=== PATIENT | female | born 1980 ===

== ENCOUNTER 2020-11-14 13:46 | Outpatient (CLI) | payer OTHER | END 2020-11-14 18:00 | disposition home or self-care (01) | LOC: LAB 13:46 | PROVIDERS: ATTEND Obstetrics & Gynecology Maternal & Fetal Medicine | DX: O28.1 Abnormal biochemical finding on antenatal screening of mother (principal) ==

== ENCOUNTER → 2020-11-14 | Outpatient (CLI) | payer OTHER | END | disposition home or self-care (01) | LOC: PRENATAL 11:00 | PROVIDERS: ATTEND Obstetrics & Gynecology Maternal & Fetal Medicine | DX: O35.0XX1 Maternal care for (suspected) central nervous system malformation in fetus, fetus 1 (principal); O35.3XX1 Maternal care for (suspected) damage to fetus from viral disease in mother, fetus 1; O28.1 Abnormal biochemical finding on antenatal screening of mother; O09.522 Supervision of elderly multigravida, second trimester; O98.512 Other viral diseases complicating pregnancy, second trimester; O99.212 Obesity complicating pregnancy, second trimester; Z36.89 Encounter for other specified antenatal screening; Z3A.20 20 weeks gestation of pregnancy ==

== ENCOUNTER → 2021-01-12 | Outpatient (CLI) | payer OTHER | END | disposition home or self-care (01) | LOC: PRENATAL 12-15 13:00 | PROVIDERS: ATTEND Obstetrics & Gynecology Maternal & Fetal Medicine | DX: O26.843 Uterine size-date discrepancy, third trimester (principal); Z36.89 Encounter for other specified antenatal screening ==

== ENCOUNTER 2021-02-13 04:04 | Inpatient (IN) | payer OTHER ==
[~2021-02-13] VITALS: Ht 170.2 cm; Wt 108.9 kg
[2021-02-13] MEDS ORDERED: BENADRYL25 MG PO (04:39)
[2021-02-13] MEDS ORDERED: PRENA1 TRUE CO1 EACH PO (04:39)
== END 2021-02-14 13:07 | disposition home or self-care (01) | DRG 204 ==
LOC: ER 04:04 → SEC-K 09:07 → OB/GYN 17:51
PROVIDERS: ADMIT Obstetrics & Gynecology; ATTEND Obstetrics & Gynecology
PROC: BY4FZZZ Ultrasonography of Third Trimester, Single Fetus (ICD-10-PCS; principal; 2021-02-13)
DX: R06.02 Shortness of breath (principal); R10.13 Epigastric pain; Z3A.34 34 weeks gestation of pregnancy; Z20.822 Contact with and (suspected) exposure to COVID-19

== ENCOUNTER 2021-03-05 05:30 | Inpatient (IN) | payer OTHER ==
[~2021-03-05] VITALS: Ht 170.2 cm; Wt 108.0 kg
[~2021-03-05 05:30] MED LIST: BENADRYL25 MG PO; PRENA1 TRUE CO1 EACH PO
[2021-03-05] MEDS ORDERED: VALTREX1000 MG (07:06)
[2021-03-05] MEDS ORDERED: CHILDREN'S ASPI81 MG (07:06)
[2021-03-07] MEDS ORDERED: NAPR500T14 PO (09:10)
== END 2021-03-07 11:43 | disposition home or self-care (01) | DRG 807 ==
LOC: LDR 05:30 → SURG-SUITE 05:30
PROVIDERS: ADMIT Obstetrics & Gynecology; ATTEND Obstetrics & Gynecology
PROC: 10E0XZZ Delivery of Products of Conception, External Approach (ICD-10-PCS; principal; 2021-03-05)
PROC: 0HQ9XZZ Repair Perineum Skin, External Approach (ICD-10-PCS; 2021-03-05)
PROC: 4A1HXFZ Monitoring of Products of Conception, Cardiac Rhythm, External Approach (ICD-10-PCS; 2021-03-05)
DX: O70.0 First degree perineal laceration during delivery (principal); Z37.0 Single live birth; Z3A.37 37 weeks gestation of pregnancy